=== PATIENT | male | born 1935 | race Two or more races ===

== ENCOUNTER 2017-12-21 16:00 | Outpatient (CLI) | payer MEDICARE ==
[~2017-12-21 16:00] MED LIST: BISA-77 PO; COL100C PO; FLO0.1T PO; MAGN-64 PO; OMEP-84 PO
== END 2017-12-21 23:59 | disposition home or self-care (01) ==
LOC: 64 CT 16:00
PROVIDERS: ATTEND Nurse Practitioner Family
DX: G31.89 Other specified degenerative diseases of nervous system (principal); I10 Essential (primary) hypertension; Z91.81 History of falling; Z87.891 Personal history of nicotine dependence
CPT/HCPCS: 70450